=== PATIENT | female | born 1945 | race Caucasian/White ===

== ENCOUNTER 2016-09-17 00:52 | Inpatient (IN) | payer MEDICARE, BC ==
[~2016-09-17] VITALS: Ht 165.1 cm; Wt 68.5 kg
--- NOTE | 2016-09-17 00:55 | NUR ---
to bed 3 bib paramedics c/o abdominal burning with n/v x1 since yesterday morning. pt aaox4 no acute distress noted, resp even and unlabored. place pt on cardiac monitoring, continuous pox. er md at bedside to eval pt with orders received. will carry out orders.
[2016-09-17] MEDS ORDERED: IV SET PRIMARY 1 EA INFUS.SET MC ONE (01:10)
[2016-09-17] MEDS ORDERED: IV NS 0.9% 500 ML IV ONE (01:10)
[2016-09-17] MEDS ORDERED: MORPHINE SULFATE INJ 2 MG/ML DISP.SYRIN ONE ×2 (01:10→04:51)
[2016-09-17] MEDS ORDERED: ONDANSETRON HCL/PF 4 MG/2 ML VIAL ONE ×2 (01:10→04:52)
--- NOTE | 2016-09-17 01:10 | NUR ---
started sl 18g to R forearm, blood drawn and sent to lab.
[2016-09-17 01:15] LABS: APPEARANCE,URINE TURBID (CLEAR); BILIRUBIN,URINE NEGATIVE (NEGATIVE); BLOOD, URINE NEGATIVE Ery/uL (NEGATIVE); COLOR,URINE YELLOW (YELLOW); KETONES,URINE TRACE (NEGATIVE); LEUKOCYTE ESTERASE ,URINE NEGATIVE (NEGATIVE); NITRITE, URINE NEGATIVE (NEGATIVE); PROTEIN,URINE TRACE mg/dl (NEGATIVE); UGLUCOSE NEGATIVE (NEGATIVE); UROBILINOGEN,URINE 0.2 EU/dL (0.2)
--- NOTE | 2016-09-17 01:21 | NUR ---
pt medicated by rn per er md order.
--- NOTE | 2016-09-17 01:22 | NUR ---
pt family member at bedside.
[2016-09-17 01:25] LABS: BASOPHILS % (AUTO) 0.2 % (0.0-2.0); EOSINOPHILS # (AUTO) 0.1 /CMM (0.0-0.7); EOSINOPHILS % (AUTO) 0.7 % (0.0-6.0); HEMATOCRIT 46 % (33-45); HEMOGLOBIN 15.6 g/dL (11.5-14.8); LYMPHOCYTES # (AUTO) 1.2 /CMM (0.8-4.8); LYMPHOCYTES % (AUTO) 8.4 % (20.0-44.0); MEAN CORPUSCULAR HEMOGLOBIN 28 PG (26.0-33.0); MEAN CORPUSCULAR HGB CONC 34 g/dl (31.0-36.0); MEAN CORPUSCULAR VOLUME 84 fL (82-100); MONOCYTES # (AUTO) 0.6 /CMM (0.1-1.30); MONOCYTES % (AUTO) 4.2 % (2.0-12.0); NEUTROPHILS # (AUTO) 12.1 /CMM (1.8-8.9); NEUTROPHILS % (AUTO) 86.5 % (43.0-81.0); PLATELET COUNT (AUTO) 225 /CMM (150-450); RDW COEFFICIENT OF VARIATION 15.4 (11.5-15.0); RED BLOOD CELL COUNT(AUTO) 5.51 MIL/uL (4.0-5.2); WHITE BLOOD COUNT (AUTO) 13.9 K/uL (4.3-11.0)
[2016-09-17] MEDS ORDERED: ONDANSETRON HCL/PF 4 MG/2 ML VIAL IVP ONE (01:30)
[2016-09-17] MEDS ORDERED: MORPHINE SULFATE INJ 2 MG/ML DISP.SYRIN IV ONE (01:30)
[2016-09-17] MEDS ORDERED: IV NS 0.9% 500 ML BAG IV ONE (01:30)
[2016-09-17 01:37] LABS: CALCIUM, SERUM 9.6 mg/dL (8.5-10.1); CARBON DIOXIDE 34 mmol/L (21-32); CHLORIDE 103 mmol/L (98-107); CREATININE 0.7 mg/dL (0.6-1.3); GLUCOSE 155 mg/dL (74-106); SODIUM SERUM 146 mmol/L (136-145); UREA NITROGEN, BLOOD 21 mg/dL (7-18)
[2016-09-17 01:39] LABS: BACTERIA,URINE None seen /HPF (None Seen); SQUAMOUS EPITHELIAL CELL,UR Rare /HPF (None Seen); URINE AMORPHOUS URATE Many /HPF (None Seen); WBC,URINE 0-2 /HPF (0-3)
[2016-09-17 01:40] LABS: INR 1.06 (0.87-1.13); PROTHROMBIN TIME 11.4 SECS (9.5-12.7)
[2016-09-17 01:42] LABS: ALANINE AMINOTRANSFERASE 26 U/L (12-78); ALBUMIN 3.8 g/dL (3.4-5.0); ALKALINE PHOSPHATASE 53 U/L (46-116); ASPARTATE AMINOTRANSFERASE 16 U/L (15-37); BILIRUBIN,DIRECT 0.1 mg/dL (0.0-0.2); BILIRUBIN,TOTAL 0.7 mg/dL (0.2-1.0); LIPASE 77 U/L (73-393); TOTAL PROTEIN, SERUM 7.3 g/dL (6.4-8.2)
[2016-09-17 01:44] LABS: TROPONIN I < 0.017 ng/mL (0.00-0.056)
--- NOTE | 2016-09-17 03:03 | NUR ---
report called to M/S TOM lopez. pending hospital admission.
[2016-09-17] MEDS ORDERED: Z GUARD REMEDY 2 OZ OINT TP PRN (04:00)
[2016-09-17] MEDS ORDERED: MORPHINE SULFATE INJ 2 MG/ML DISP.SYRIN IV PRN (04:00)
[2016-09-17] MEDS ORDERED: ONDANSETRON HCL/PF 4 MG/2 ML VIAL IVP PRN (04:00)
[2016-09-17 04:15] VITALS: BP 153/72
[2016-09-17] MEDS ORDERED: PROP80TA4 PO (04:48)
[2016-09-17] MEDS ORDERED: LEVO25TA7 PO (04:48)
[2016-09-17] MEDS ORDERED: BACL10TA PO (04:48)
[2016-09-17] MEDS ORDERED: CYCL30DR EACHEYE (04:48)
[2016-09-17] MEDS ORDERED: LIFI1DRO OP (04:48)
[2016-09-17] MEDS ORDERED: ROSU10TA PO (04:48)
[2016-09-17] MEDS ORDERED: METF500T4 PO (04:48)
[2016-09-17] MEDS ORDERED: ZONI25CA3 PO (04:48)
[2016-09-17] MEDS ORDERED: DABI150C PO (04:48)
[2016-09-17] MEDS ORDERED: GABA600T2 PO (04:48)
[2016-09-17] MEDS ORDERED: SITA100T PO (04:48)
[2016-09-17] MEDS ORDERED: DULO60CA45 PO (04:48)
[2016-09-17] MEDS ORDERED: MELO-264 PO (04:48)
[2016-09-17] MEDS ORDERED: MONT10TA22 PO (04:48)
[2016-09-17] MEDS ORDERED: PANT40TA2 PO (04:48)
--- NOTE | 2016-09-17 06:30 | NUR ---
MS RN NOTES AWAKE & RESPONSIVE. NOT IN ANY DISTRESS. NO SOB NOTED. DENIES ANY PAIN OR DISCOMFORT AT THIS TIME. WITH IV-HL PATENT & INTACT. MONITORED ACCORDINGLY. CALL LIGHT WITHIN REACH. BED IN LOWEST POSITION. SR UP X 2 FOR SAFETY. WILL ENDORSE TO NEXT SHIFT.
--- NOTE | 2016-09-17 07:52 | NUR ---
RN OPENING NOTES RECEIVED PATIENT IN BED, ASLEEP, HOB, NO SOB OR DISTRESS NOTED. A/O X 4, VERBALLY RESPONSIVE AND ABLE TO MAKE NEEDS KNOWN. IV INTACT AND PATENT. KEPT PATIENT CLEAN AND COMFORTABLE IN BED, CALL LIGHT WITHIN PATIENT REACH. WILL CONTINUE TO MONITOR ACCORDINGLY.
[2016-09-17 08:00] VITALS: BP 168/84
[2016-09-17] MEDS ORDERED: IV NS 0.9% 1,000 ML BAG IV PRN (10:00)
--- NOTE | 2016-09-17 11:10 | NUR ---
RN NOTES NG TUBE INDIAN 16 WAS PLACED, PATIENT TOLERATED WELL. CHEST X RAY STAT FOR PLACEMENT WAS ORDERED.
--- NOTE | 2016-09-17 11:25 | NUR ---
RN NOTES NG TUBE SUCTIONED 650ML OF COFFEE GROUND SECRETIONS.
[2016-09-17] MEDS ORDERED: IV SET PRIMARY PUMP SET 1 EA INFUS.SET MC ONE (12:19)
[2016-09-17] MEDS: POTASSIUM CL. PREMIX PERIPHER. 50 ML IV SCH ×6 (12:25→22:57)
[2016-09-17] MEDS: IV NS 0.9% 1,000 ML IV PRN (12:25)
[2016-09-17] MEDS ORDERED: SECONDARY IV SET 1 EA INFUS.SET MC ONE (13:06)
[2016-09-17] MEDS: CEFTRIAXONE 1 G in IV D5W 50 ML IV SCH (13:10)
[2016-09-17] MEDS: METRONIDAZOLE 500MG/ NS 100ML 500 MG in PREMIX 1 EA IV SCH ×2 (14:05→21:25)
[2016-09-17 16:00] VITALS: BP 172/90
--- NOTE | 2016-09-17 17:20 | NUR ---
RN NOTES I PAGED DR. TRUJILLO CLARIFYING ABOUT PATIENT'S ACCU CHECKS AND HE ORDERED ACCU CHECKS EVERY 6 HOURS WITHOUT SLIDING SCALE BECAUSE PATIENT IS NPO.
--- NOTE | 2016-09-17 18:20 | NUR ---
RN NOTES ALL NEEDS PROVIDED, ATTENDED, AND ANTICIPATED. KEPT PATIENT CLEAN AND COMFORTABLE IN BED, CALL LIGHT WITHIN PATIENT REACH. WILL CONTINUE TO MONITOR ACCORDINGLY. ENDORSED TO NEXT SHIFT RN TO CONTINUE CARE.
[2016-09-17] MEDS ORDERED: CLONIDINE HCL 0.2MG/24H PTWK 1 EA PATCH TD SCH (18:30)
--- NOTE | 2016-09-17 19:40 | NUR ---
MS RN NOTE: PATIENT RESTING IN BED, NO ACUTE DISTRESS NOTED. BREATHING EVEN AND UNLABORED, NO SOB NOTED. IV TO RFA IN PLACE. NG TUBE IN PLACE WITH SUCTION, HOB ELEVATED. BED LOCKED AND IN LOWEST POSITION, CALL LIGHT IN REACH. WILL CONTINUE TO MONITOR. Addendum: 09/18/16 at 0355 by FRANCOIS SAHA RN NG TUBE WITH ALREADY 1100 ML OF COFFEE GROUND DRAINAGE.
[2016-09-17 20:00] VITALS: BP 164/77
[2016-09-17] MEDS: BLOOD SUGAR DIAGNOSTIC 1 EACH STRIP IN SCH (23:07)
--- NOTE | 2016-09-17 23:15 | NUR ---
MS RN NOTE: PATIENT BLOOD SUGAR LEVEL 140 MG/DL, NO SLIDING SCALE ORDERED PER MD. PATIENT NPO, DENIES S/S OF HYPER/HYPOGLYCEMIA AT THIS TIME. WILL CONTINUE TO MONITOR.
[2016-09-18] MEDS: METRONIDAZOLE 500MG/ NS 100ML 500 MG in PREMIX 1 EA IV SCH ×3 (05:27→21:24)
[2016-09-18] MEDS: IV NS 0.9% 1,000 ML IV PRN (05:28)
[2016-09-18] MEDS: BLOOD SUGAR DIAGNOSTIC 1 EACH STRIP IN SCH ×3 (05:28→17:11)
--- NOTE | 2016-09-18 06:05 | NUR ---
MS RN NOTE: PATIENT RESTING IN BED, NO ACUTE DISTRESS NOTED. BREATHING EVEN AND UNLABORED, NO SOB NOTED. IV TO RFA IN PLACE, INFUSING NS AT 100ML/HR. NG TUBE IN PLACE WITH SUCTION WITH COFFEE GROUND DRAINAGE, HOB ELEVATED. BED LOCKED AND IN LOWEST POSITION, CALL LIGHT IN REACH. WILL ENDORSE TO DAY NURSE TO CONTINUE WITH PLAN OF CARE.
[2016-09-18 06:34] LABS: BASOPHILS % (AUTO) 0.3 % (0.0-2.0); EOSINOPHILS # (AUTO) 0.1 /CMM (0.0-0.7); EOSINOPHILS % (AUTO) 1.4 % (0.0-6.0); HEMATOCRIT 41 % (33-45); HEMOGLOBIN 13.7 g/dL (11.5-14.8); LYMPHOCYTES # (AUTO) 0.8 /CMM (0.8-4.8); LYMPHOCYTES % (AUTO) 8.5 % (20.0-44.0); MEAN CORPUSCULAR HEMOGLOBIN 28 PG (26.0-33.0); MEAN CORPUSCULAR HGB CONC 34 g/dl (31.0-36.0); MEAN CORPUSCULAR VOLUME 84 fL (82-100); MONOCYTES # (AUTO) 0.9 /CMM (0.1-1.30); MONOCYTES % (AUTO) 9.5 % (2.0-12.0); NEUTROPHILS # (AUTO) 7.5 /CMM (1.8-8.9); NEUTROPHILS % (AUTO) 80.3 % (43.0-81.0); PLATELET COUNT (AUTO) 195 /CMM (150-450); RDW COEFFICIENT OF VARIATION 15.6 (11.5-15.0); RED BLOOD CELL COUNT(AUTO) 4.87 MIL/uL (4.0-5.2); WHITE BLOOD COUNT (AUTO) 9.3 K/uL (4.3-11.0)
[2016-09-18 06:54] LABS: CALCIUM, SERUM 8.5 mg/dL (8.5-10.1); CREATININE 0.6 mg/dL (0.6-1.3); MAGNESIUM 2.1 mg/dL (1.8-2.4); PHOSPHORUS 3.9 mg/dL (2.5-4.9); POTASSIUM 3.4 mmol/L (3.5-5.1)
--- NOTE | 2016-09-18 07:24 | NUR ---
RN OPENING NOTES RECEIVED PATIENT IN BED, AWAKE, HOB, NO SOB OR DISTRESS NOTED. A/O X 3-4, VERBALLY RESPONSIVE AND ABLE TO MAKE NEEDS KNOWN. PATIENT ON O2 2 LPM VIA NC AND TOLERATED WELL. IV INTACT AND PATENT. KEPT PATIENT CLEAN AND COMFORTABLE IN BED, CALL LIGHT WITHIN PATIENT REACH. WILL CONTINUE TO MONITOR ACCORDINGLY.
[2016-09-18 08:00] VITALS: BP 132/69
[2016-09-18] MEDS: POTASSIUM CL. PREMIX PERIPHER. 50 ML IV SCH ×4 (09:45→16:44)
[2016-09-18] MEDS ORDERED: IV 1/2NS 1000 ML 1,000 ML IV SCH (10:30)
[2016-09-18] MEDS ORDERED: DIATR MEGLU/DIATRIZOATE SODIUM 120 ML BOTTLE (GASTROGRAPHIN) ONE (10:38)
--- NOTE | 2016-09-18 10:50 | NUR ---
RN NOTES PATIENT WENT TO RADIOLOGY FOR THE SMALL BOWEL FOLLOW THROUGH PROCEDURE.
--- NOTE | 2016-09-18 10:54 | NUR ---
RN NOTES PATIENT GAVE MA A COPY OF HER ADVANCE DIRECTIVES, PATIENT WANTS TO BE DNR. DR. TRUJILLO IS AWARE AND CODE STATUS UPDATED.
--- NOTE | 2016-09-18 12:45 | NUR ---
RN NOTES PATIENT CAME BACK FROM PROCEDURE IN STABLE CONDITION WITH NO SIGNS OF DISTRESS. PATIENT DENIES PAIN AT THIS MOMENT.
[2016-09-18] MEDS: CEFTRIAXONE 1 G in IV D5W 50 ML IV SCH (12:50)
[2016-09-18] MEDS: IV 1/2NS 1000 ML 1,000 ML IV PRN (13:38)
[2016-09-18 16:00] VITALS: BP 152/83
--- NOTE | 2016-09-18 18:15 | NUR ---
RN CLOSING NOTES ALL NEEDS PROVIDED, ATTENDED, AND ANTICIPATED. KEPT PATIENT CLEAN AND COMFORTABLE IN BED. CALL LIGHT WITHIN PATIENT REACH. WILL CONTINUE TO MONITOR ACCORDINGLY. ENDORSED TO NEXT SHIFT RN TO CONTINUE CARE.
--- NOTE | 2016-09-18 18:42 | NUR ---
RN NOTES PATIENT HAD A LOOSE, DARK BROWN MOVEMENT
[2016-09-18 20:00] VITALS: BP 176/71
[2016-09-19] MEDS: BLOOD SUGAR DIAGNOSTIC 1 EACH STRIP IN SCH ×3 (00:06→11:33)
[2016-09-19] MEDS: IV 1/2NS 1000 ML 1,000 ML IV PRN (04:49)
[2016-09-19] MEDS: METRONIDAZOLE 500MG/ NS 100ML 500 MG in PREMIX 1 EA IV SCH ×2 (04:50→13:00)
[2016-09-19 06:45] LABS: CALCIUM, SERUM 8.1 mg/dL (8.5-10.1); CREATININE 0.5 mg/dL (0.6-1.3); MAGNESIUM 2.1 mg/dL (1.8-2.4); POTASSIUM 3.5 mmol/L (3.5-5.1)
--- NOTE | 2016-09-19 07:27 | NUR ---
MS RN OPENING RECEIVED PATIENT A/OX4 DENIES SOB, DIFFICULTY BREATHING OR PAIN. PATIENT STATES NO NEEDS AT THIS TIME AND ALL NEEDS IN REACH. PATIENT UPDATED ON CARE PLAN AND AWARE CLEAR LIQUIDS FOR BREAKFAST. WILL NOTIFY MD OF MED RECON SINCE PATIENT IS NOT NPO AT THIS TIME. WILL ROUND Q2H OR LESS PER NEEDS.
--- NOTE | 2016-09-19 07:45 | NUR ---
MS RN NOTES PATIENT STATES SHE IS HAVING DIARRHEA THAT STARTED AFTER THE SBFT. ADIVSED THIS IS TYPICAL FROM THE PROCEDURE. PATIENT AMBULATORY TO RESTROOM
[2016-09-19 08:00] VITALS: BP 152/71
--- NOTE | 2016-09-19 09:43 | NUR ---
MS RN NOTES PER DR TRUJILLO START PATIENT ON SOFT DIET FOR LUNCH AND IF TOLERATES OK TO DC PATIENT
--- NOTE | 2016-09-19 09:50 | NUR ---
MS RN NOTES FAXED MED RECON TO PHARMACY PER MD TRUJILLO
--- NOTE | 2016-09-19 09:54 | NUR ---
MS RN NOTES PER DR CASSANDRA SOTELO TO CONTINUE ALL HOME MEDICATIONS AND RESUME BEFORE PATIENT DCD
--- NOTE | 2016-09-19 10:09 | NUR ---
MS RN NOTES PER DR CASSANDRA GUERIN IVF
[2016-09-19] MEDS ORDERED: LEVOTHYROXINE SODIUM 75 MCG TABLET PO SCH (11:12)
[2016-09-19] MEDS ORDERED: MONTELUKAST SODIUM (10MG) 10 MG TABLET PO SCH (11:12)
[2016-09-19] MEDS ORDERED: PANTOPRAZOLE 40 MG TABLET.DR PO SCH (11:13)
[2016-09-19] MEDS ORDERED: MELOXICAM 7.5 MG TABLET PO SCH (11:14)
[2016-09-19] MEDS ORDERED: GABAPENTIN 300 MG CAPSULE PO SCH (11:14)
[2016-09-19] MEDS ORDERED: METFORMIN 500 MG TABLET PO SCH (11:16)
[2016-09-19] MEDS ORDERED: LINAGLIPTIN 5 MG TABLET PO SCH (11:16)
[2016-09-19] MEDS ORDERED: DULOXETINE HCL 30 MG CAPSULE.DR PO SCH (11:17)
[2016-09-19] MEDS ORDERED: PROPRANOLOL HCL 40 MG TABLET PO SCH (11:18)
[2016-09-19] MEDS ORDERED: DABIGATRAN ETEXILATE MESYLATE 150 MG CAPSULE PO SCH (11:19)
[2016-09-19] MEDS ORDERED: BACLOFEN (10 MG) 10 MG TABLET PO PRN (11:30)
--- NOTE | 2016-09-19 11:30 | NUR ---
MS RN NOTES MEDICATION PYXIS IS STILL DOWN. UNABLE TO GIVE PATIENT MEDICATIONS UNTIL UP AGAIN.
[2016-09-19] MEDS: CEFTRIAXONE 1 G in IV D5W 50 ML IV SCH (11:33)
[2016-09-19] MEDS ORDERED: ZONISAMIDE 100 MG CAPSULE PO SCH (13:00)
--- NOTE | 2016-09-19 13:31 | NUR ---
MS RN NOTES PATIENT STATING SHE WILL TAKE ALL OF HER MEDICATIONS WHEN SHE GETS HOME. ALL HOME MEDICATIONS BROUGHT UP FROM PHARMACY AND ACCOUNTED FOR. ALL BELONGINGS BROUGHT FROM [facility]E AND PATIENT SORTING THROUGH TO MAKE SURE ALL ACCOUNTED FOR.
--- NOTE | 2016-09-19 13:52 | NUR ---
MS SANTOS NOTES PER DR BENJI HOLLINGSWORTH DO NOT GIVE PLATELET TRANSFUSION Addendum: 09/19/16 at 1353 by GUSTAVO CUELLAR RN DISREGARD. INCORRECT PATIENT.
--- NOTE | 2016-09-19 14:26 | NUR ---
MS AUTOMATION AND CONTROLS SUPERVISOR PATIENT TOLERATED DIET WELL NO COMPLICATIONS. IV REMOVED PRESSURE AND DRESSING APPLIED NO BLEEDING. BELONGINGS AND MEDICATIONS BROUGHT TO PATIENT AND ALL ACCOUNTED FOR. PATIENT EDUCATED ON DC MATERIAL AND STATED UNDERSTANDING. ALL QUESTIONS ANSWERED. RX CALLED INTO PATIENT PREFERRED PHARMACY. PATIENT ASSISTED TO WHEELCHAIR BY VIOLETA DIAZ AND TAKEN TO PRIVATE VEHICLE WHERE ROME FRIEND IS TAKING PATIENT HOME. NO COMPLICATIONS NOTED AND PATIENT LEFT IN STABLE CONDITION
[2016-09-19] MEDS ORDERED: Medication Not On Formulary EA (Cyclosporine (Restasis) 1 DROP) EACHEYE SCH (17:00)
[2016-09-20] MEDS ORDERED: Medication Not On Formulary EA (Rosuvastatin Calcium (Crestor) 10 MG) PO SCH (09:00)
== END 2016-09-19 14:26 | disposition home or self-care (01) | DRG 389 ==
LOC: ER 00:54 → MEDSG2 03:21
PROVIDERS: ADMIT Family Medicine; ATTEND Family Medicine
DX: K56.60 Unspecified intestinal obstruction (principal); E87.0 Hyperosmolality and hypernatremia; D68.59 Other primary thrombophilia; I48.91 Unspecified atrial fibrillation; E87.6 Hypokalemia; I10 Essential (primary) hypertension; N28.89 Other specified disorders of kidney and ureter
CPT/HCPCS: 36415; 71010-TC; 74000-TC; 74250-TC; 80048-TC; 80061-TC; 80076-TC; 81000-TC; 82962-TC; 83690-TC; 83735-TC; 84100-TC; 84484-TC; 85025-TC; 85730-TC; 87081-TC; A4216; A4606; J0696; J2270; J2405; J3480; J3490; J7030; J7040; J7060; Q9963; Z7610

== ENCOUNTER 2018-08-12 16:30 | Inpatient (IN) | payer MEDICARE, BC ==
[~2018-08-12] VITALS: Ht 165.1 cm; Wt 74.9 kg
[~2018-08-12 16:30] MED LIST: BACL10TA PO; CYCL30DR EACHEYE; DABI150C PO; DULO60CA45 PO; GABA600T12 PO; LEVO25TA7 PO; LIFI1DRO OP; MELO-107 PO; METF-440 PO; MONT10TA22 PO; PANT40TA2 PO; PROP80TA4 PO; ROSU10TA2 PO; SITA100T PO; ZONI25CA3 PO
--- NOTE | 2018-08-12 16:38 | NUR ---
BIB [facility] 89 FROM HOME,C/O FEELING SICK/WEAK ALSO C/O CHEST PRESSURE. HAS HAD SX FOR ALMOST 2 WEEKS, AND GETTING WORSE. PT IS AOX4 AND AMBULATORY. SATTING AT 88% SO PLACED ON 2L O2 VIA NC. NO ACUTE DISTRESS NOTED. MADE COMFORTABLE, HOOKED TO MONITOR, AND READY FOR EVAL.
[2018-08-12 16:53] LABS: BASOPHILS % (AUTO) 0.4 % (0.0-2.0); EOSINOPHILS % (AUTO) 0.9 % (0.0-6.0); HEMATOCRIT 38 % (33-45); HEMOGLOBIN 12.6 g/dL (11.5-14.8); LYMPHOCYTES # (AUTO) 1.2 /CMM (0.8-4.8); LYMPHOCYTES % (AUTO) 10.9 % (20.0-44.0); MEAN CORPUSCULAR HGB CONC 34 g/dl (31.0-36.0); MEAN CORPUSCULAR VOLUME 87 fL (82-100); MONOCYTES # (AUTO) 1.3 /CMM (0.1-1.30); MONOCYTES % (AUTO) 11.9 % (2.0-12.0); NEUTROPHILS # (AUTO) 8.6 /CMM (1.8-8.9); NEUTROPHILS % (AUTO) 75.9 % (43.0-81.0); PLATELET COUNT (AUTO) 177 /CMM (150-450); RED BLOOD CELL COUNT(AUTO) 4.32 MIL/uL (4.0-5.2); WHITE BLOOD COUNT (AUTO) 11.3 K/uL (4.3-11.0)
[2018-08-12 17:05] LABS: CALCIUM, SERUM 8.6 mg/dL (8.5-10.1); CARBON DIOXIDE 33 mmol/L (21-32); CHLORIDE 103 mmol/L (98-107); CREATININE 0.6 mg/dL (0.6-1.3); GLUCOSE 95 mg/dL (74-106); POTASSIUM 3.3 mmol/L (3.5-5.1); SODIUM SERUM 141 mmol/L (136-145); UREA NITROGEN, BLOOD 16 mg/dL (7-18)
--- NOTE | 2018-08-12 17:05 | NUR ---
ASSISTED PT TO RESTROOM
[2018-08-12 17:17] LABS: ALANINE AMINOTRANSFERASE 23 U/L (12-78); ALBUMIN 3.1 g/dL (3.4-5.0); ALKALINE PHOSPHATASE 51 U/L (46-116); ASPARTATE AMINOTRANSFERASE 13 U/L (15-37); B-TYPE NATRIURETIC PEPTIDE 3088 PG/ML (0-125); BILIRUBIN,DIRECT 0.1 mg/dL (0.0-0.2); BILIRUBIN,TOTAL 0.9 mg/dL (0.2-1.0); TOTAL PROTEIN, SERUM 6.6 g/dL (6.4-8.2)
--- NOTE | 2018-08-12 17:17 | NUR ---
SPOKE WITH SISTER, ARCENIO CASTANEDA [phone]. LIVES IN [place]
[2018-08-12] MEDS ORDERED: MELO-107 PO (17:29)
[2018-08-12] MEDS ORDERED: PROP40TA7 PO (17:29)
[2018-08-12] MEDS ORDERED: ZONI25CA3 PO (17:29)
[2018-08-12] MEDS ORDERED: METF-440 PO (17:29)
[2018-08-12] MEDS ORDERED: CYCL30DR OP (17:29)
[2018-08-12] MEDS ORDERED: LOSA50TA39 PO (17:29)
[2018-08-12] MEDS ORDERED: LIFI1DRO OP (17:29)
[2018-08-12] MEDS ORDERED: KETO5DRO83 OP (17:29)
[2018-08-12] MEDS ORDERED: MONT10TA22 PO (17:29)
[2018-08-12] MEDS ORDERED: LEVO175T7 PO (17:29)
[2018-08-12] MEDS ORDERED: PANT40TA4 PO ×2 (17:29→17:33)
[2018-08-12] MEDS ORDERED: BACL10TA PO (17:29)
[2018-08-12] MEDS ORDERED: DULO60CA45 PO (17:29)
[2018-08-12] MEDS ORDERED: ATOR20TA PO (17:29)
[2018-08-12] MEDS ORDERED: SITA50TA PO (17:29)
[2018-08-12] MEDS ORDERED: ASPI-605 PO (17:29)
[2018-08-12] MEDS ORDERED: MAGN64TA7 GT (17:33)
--- NOTE | 2018-08-12 17:44 | NUR ---
325-2 TELE AGNIESZKA JAY DNP
--- NOTE | 2018-08-12 18:23 | NUR ---
REPORT GIVEN TO TOM ARAIZA FOR 325-2 TELE
[2018-08-12] MEDS ORDERED: DEXTROSE 50%-WATER 50 ML DISP.SYRIN IV PRN (18:30)
[2018-08-12] MEDS ORDERED: ACETAMINOPHEN 325 MG TABLET PO PRN (18:30)
[2018-08-12] MEDS ORDERED: Z GUARD REMEDY 2 OZ OINT TP PRN (18:30)
[2018-08-12] MEDS ORDERED: INSULIN REGULAR, HUMAN 100 UNIT/ML 3 ML VIAL SQ PRN (18:30)
[2018-08-12] MEDS ORDERED: HYDROCODONE/APAP 5/325MG 1 EACH TABLET PO PRN (18:30)
[2018-08-12] MEDS ORDERED: ONDANSETRON HCL/PF 4 MG/2 ML VIAL IVP PRN (18:30)
--- NOTE | 2018-08-12 18:47 | NUR ---
Patient is resting comfortably in bed with eyes closed. Easily aroused. VSS
--- NOTE | 2018-08-12 18:50 | NUR ---
[facility]
[2018-08-12] MEDS ORDERED: BUMETANIDE INJ 6 MG in IV NS 0.9% 36 ML IV ONE (19:00)
--- NOTE | 2018-08-12 19:00 | NUR ---
client account assistant opening notes Received PT from ER. PT is alert and oriented X4. No complaint of pain or any discomfort. Respiration is equal and unlabored. NO SOB. Patient gait is steady and able to walk to the bathroom with minimum assistance. IV sites is on right AC, intact, patent and flush without resistance. PT skin is intact
--- NOTE | 2018-08-12 19:00 | NUR ---
motor equipment captain notes continue Safety precautions is maintained. Bed at low position and call light is within reach. Will continue to monitor.
[2018-08-12 20:00] VITALS: BP 147/80
[2018-08-12] MEDS: BLOOD SUGAR DIAGNOSTIC 1 EACH STRIP IN SCH (21:11)
[2018-08-12] MEDS: GABAPENTIN 300 MG CAPSULE PO SCH (21:12)
[2018-08-12] MEDS: ATORVASTATIN 10 MG TABLET PO SCH (21:12)
[2018-08-12] MEDS: BACLOFEN (10 MG) 10 MG TABLET PO SCH (21:13)
[2018-08-12] MEDS: ENOXAPARIN SODIUM 40 MG/0.4 ML DISP.SYRIN SQ SCH (21:14)
[2018-08-12] MEDS ORDERED: BUMETANIDE INJ 0.25 MG/ML VIAL ONE (21:36)
[2018-08-13] VITALS: BP 146/82
--- NOTE | 2018-08-13 01:06 | NUR ---
red mud thickener operator notes PT is resting in bed comfortably with eyes closed. Will continue to monitor.
[2018-08-13 04:00] VITALS: BP 154/73
--- NOTE | 2018-08-13 05:49 | NUR ---
barrer and tacker notes The Pharmacy asked to see if the PT can bring her own home medications. Asked and informed PT about Home medications Restasis and Xiidra eye drops. PT states "I'm feeling better, I don't need it." PT verbalize understanding.
[2018-08-13] MEDS: BLOOD SUGAR DIAGNOSTIC 1 EACH STRIP IN SCH ×4 (06:00→21:45)
[2018-08-13 06:22] LABS: BASOPHILS # (AUTO) 0.1 /CMM (0.0-0.2); BASOPHILS % (AUTO) 0.7 % (0.0-2.0); EOSINOPHILS % (AUTO) 1.8 % (0.0-6.0); HEMATOCRIT 38 % (33-45); HEMOGLOBIN 12.8 g/dL (11.5-14.8); LYMPHOCYTES # (AUTO) 1.5 /CMM (0.8-4.8); LYMPHOCYTES % (AUTO) 16.4 % (20.0-44.0); MEAN CORPUSCULAR HGB CONC 34 g/dl (31.0-36.0); MEAN CORPUSCULAR VOLUME 86 fL (82-100); MONOCYTES # (AUTO) 1.1 /CMM (0.1-1.30); MONOCYTES % (AUTO) 11.9 % (2.0-12.0); NEUTROPHILS # (AUTO) 6.2 /CMM (1.8-8.9); NEUTROPHILS % (AUTO) 69.2 % (43.0-81.0); PLATELET COUNT (AUTO) 177 /CMM (150-450); RED BLOOD CELL COUNT(AUTO) 4.36 MIL/uL (4.0-5.2)
--- NOTE | 2018-08-13 06:28 | NUR ---
advanced practice nurse psychotherapist notes continue PT is on shelter monitor-Sinus arrythmia.
--- NOTE | 2018-08-13 06:28 | NUR ---
earth sciences professor closing notes PT is alert and oriented X4. PT is resting comfortably in bed with eyes closed. Arouse easily. NO SOB. No pain or any discomfort at this time. PT is on cardiac care nurse-Sinus Arrythmia. IV site is intact, patent and flush without resistance. Last blood glucose was 112. Routine Meds have been given and all needs met. Safety precautions is maintained. Bed at low position and call light is within reach. Will endorse to morning nurse.
[2018-08-13 06:34] LABS: ALANINE AMINOTRANSFERASE 23 U/L (12-78); ALKALINE PHOSPHATASE 48 U/L (46-116); ASPARTATE AMINOTRANSFERASE 14 U/L (15-37); BILIRUBIN,TOTAL 0.8 mg/dL (0.2-1.0); CALCIUM, SERUM 8.4 mg/dL (8.5-10.1); CARBON DIOXIDE 34 mmol/L (21-32); CHLORIDE 102 mmol/L (98-107); CREATININE 0.6 mg/dL (0.6-1.3); GLUCOSE 114 mg/dL (74-106); MAGNESIUM 1.8 mg/dL (1.8-2.4); PHOSPHORUS 3.5 mg/dL (2.5-4.9); SODIUM SERUM 145 mmol/L (136-145); UREA NITROGEN, BLOOD 14 mg/dL (7-18)
--- NOTE | 2018-08-13 07:10 | NUR ---
flooring professional notes Received critical lab from Lab, PT's potassium was 2,6. Informed the morning nurse already about PT's Potassium and home medications Restasis and Xiidra eye drops.
[2018-08-13 07:13] LABS: POTASSIUM 2.6 mmol/L (3.5-5.1)
[2018-08-13 08:00] VITALS: BP 155/80
--- NOTE | 2018-08-13 08:00 | NUR ---
RN NOTES RECEIVED PATIENT IN THE BED A/O X3/4. PATIENT ON TELE. TELE MONITOR ON SR-61. PATIENT STABLE, HAS NO ACUTE RESPIRATORY DISTRESS, V/S STABLE. PATIENT REFUSED PAIN, USING BEDSIDE COMMODE. IV ACCESS ON RIGHT AC AREA INTACT. GET ORDER FOR ABNORMAL LAB RESULT KCL 2.6 K-DURE [address] ROMERO. PATIENT STABLE ADMINISTERED SCHEDULED MEDICATION, V/S STABLE. PATIENT SHAKING PER GENETIC DISORDER. CALL LIGHT WITHIN TO REACH, SAFETY PRECAUTION MAINTAINED ALL THE TIME. PATIENT USING BEDSIDE COMMODE.
[2018-08-13] MEDS: PANTOPRAZOLE 40 MG TABLET.DR PO SCH ×2 (08:36→16:43)
[2018-08-13] MEDS: LEVOTHYROXINE SODIUM 175 MCG TABLET PO SCH (08:36)
[2018-08-13] MEDS: DULOXETINE HCL 20 MG CAPSULE.DR PO SCH (08:37)
[2018-08-13] MEDS: GABAPENTIN 300 MG CAPSULE PO SCH ×3 (08:37→21:45)
[2018-08-13] MEDS: PROPRANOLOL HCL 40 MG TABLET PO SCH ×2 (08:39→16:43)
[2018-08-13] MEDS: BACLOFEN (10 MG) 10 MG TABLET PO SCH ×3 (08:41→16:43)
[2018-08-13] MEDS: LINAGLIPTIN 5 MG TABLET PO SCH (08:41)
[2018-08-13] MEDS: MONTELUKAST SODIUM (10MG) 10 MG TABLET PO SCH (08:41)
[2018-08-13] MEDS: METFORMIN 500 MG TABLET PO SCH (08:47)
[2018-08-13] MEDS: KETOROLAC EYE 0.5% 3 ML BOTTLE EACHEYE SCH ×2 (08:47→16:43)
[2018-08-13] MEDS: ASPIRIN EC 81 MG TABLET.DR PO SCH (08:47)
[2018-08-13 08:50] LABS: CHOLESTEROL 131 mg/dL (<200); HDL CHOLESTEROL 41 mg/dL (40-60); LDL 75 mg/dL (0-99); TRIGLYCERIDES 99 mg/dL (30-150)
[2018-08-13] MEDS ORDERED: CYCLOSPORINE EACHEYE SCH (09:00)
[2018-08-13] MEDS ORDERED: LIFITEGRAST EYE EACHEYE SCH (09:00)
[2018-08-13] MEDS ORDERED: LOSARTAN POTASSIUM 50 MG TABLET PO SCH (09:00)
[2018-08-13] MEDS: POTASSIUM CHLORIDE 20 MEQ TAB.PRT.SR PO SCH ×5 (09:09→13:00)
[2018-08-13 09:14] VITALS: BP 142/71
[2018-08-13] MEDS: VALSARTAN 80 MG TABLET PO SCH (09:14)
--- NOTE | 2018-08-13 11:00 | NUR ---
RN NOTES PATIENT GETTING ECHO US AT THIS TIME, STABLE. CONTINUED MONITORING. PER COLLEGE ADMINISTRATOR D/C TELE TO MED/SURGE. CONTINUED MONITORING.
--- NOTE | 2018-08-13 12:00 | NUR ---
RN NOTES BS-104 MG/DL, NO COVERAGE GIVEN, V/S STABLE, PATIENT EATING LUNCH.
[2018-08-13 14:10] LABS: TOTAL PROTEIN, SERUM 6.8 g/dL (6.4-8.2)
[2018-08-13] MEDS ORDERED: POTASSIUM CHLORIDE 20 MEQ TAB.PRT.SR PO ONE (15:30)
[2018-08-13 16:00] VITALS: BP 140/72
--- NOTE | 2018-08-13 18:30 | NUR ---
RN NOTES PATIENT STABLE, V/S STABLE, BS-104 MG/DL, NO COVERAGE GIVEN, PATIENT MED COMPLIANT. COLLECTED UA CLEAN CATCH. FRIEND NEXT TO THE BED . CALL LIGHT WITHIN TO REACH. SAFETY PRECAUTION MAINTAINED ALL THE TIME. ENDORSED ONCOMING NURSE PLAN OF CARE.
--- NOTE | 2018-08-13 19:30 | NUR ---
RN OPEN NOTES RECEIVED PATIENT AWAKE IN BED WITH FAMILY AT BEDSIDE. A/OX4. NO SIGNS OF DISTRESS OR DISCOMFORT. BREATHING EVEN AND UNLABORED. ON 2LPM O2 VIA NC. IV ACCESS IN RAC, PATENT AND INTACT, NO SIGNS OF REDNESS OR INFILTRATION. BED IN LOW LOCKED POSITION WITH SIDE RAILS X2. CALL LIGHT LIGHT WITHIN REACH. WILL CONTINUE TO MONITOR.
[2018-08-13 20:00] VITALS: BP 142/75
[2018-08-13 20:17] LABS: CHLORIDE,URINE RANDOM 80 mmol/L (55-125); POTASSIUM RNDM,URINE 129 mmol/L (25-125); URINE SODIUM, RANDOM 30 mmol/l (40-220)
[2018-08-13 20:51] LABS: OSMOLALITY,URINE 640 mOS/kg (340-1090)
[2018-08-13] MEDS: ATORVASTATIN 10 MG TABLET PO SCH (21:45)
[2018-08-13] MEDS: ENOXAPARIN SODIUM 40 MG/0.4 ML DISP.SYRIN SQ SCH (21:46)
[2018-08-14 06:23] LABS: BASOPHILS # (AUTO) 0.1 /CMM (0.0-0.2); BASOPHILS % (AUTO) 0.7 % (0.0-2.0); EOSINOPHILS % (AUTO) 2.8 % (0.0-6.0); HEMATOCRIT 38 % (33-45); HEMOGLOBIN 12.9 g/dL (11.5-14.8); LYMPHOCYTES # (AUTO) 1.5 /CMM (0.8-4.8); LYMPHOCYTES % (AUTO) 17.8 % (20.0-44.0); MEAN CORPUSCULAR HGB CONC 34 g/dl (31.0-36.0); MEAN CORPUSCULAR VOLUME 87 fL (82-100); MONOCYTES # (AUTO) 0.9 /CMM (0.1-1.30); MONOCYTES % (AUTO) 11.2 % (2.0-12.0); NEUTROPHILS # (AUTO) 5.7 /CMM (1.8-8.9); NEUTROPHILS % (AUTO) 67.5 % (43.0-81.0); PLATELET COUNT (AUTO) 184 /CMM (150-450); RED BLOOD CELL COUNT(AUTO) 4.37 MIL/uL (4.0-5.2); WHITE BLOOD COUNT (AUTO) 8.4 K/uL (4.3-11.0)
[2018-08-14] MEDS: BLOOD SUGAR DIAGNOSTIC 1 EACH STRIP IN SCH ×2 (06:33→11:44)
[2018-08-14 06:39] LABS: ALANINE AMINOTRANSFERASE 20 U/L (12-78); ALBUMIN 2.8 g/dL (3.4-5.0); ALKALINE PHOSPHATASE 49 U/L (46-116); ASPARTATE AMINOTRANSFERASE 11 U/L (15-37); BILIRUBIN,TOTAL 0.7 mg/dL (0.2-1.0); CALCIUM, SERUM 8.6 mg/dL (8.5-10.1); CARBON DIOXIDE 35 mmol/L (21-32); CHLORIDE 104 mmol/L (98-107); CREATININE 0.7 mg/dL (0.6-1.3); GLUCOSE 103 mg/dL (74-106); MAGNESIUM 1.9 mg/dL (1.8-2.4); PHOSPHORUS 3.2 mg/dL (2.5-4.9); POTASSIUM 3.3 mmol/L (3.5-5.1); SODIUM SERUM 144 mmol/L (136-145); TOTAL PROTEIN, SERUM 6.4 g/dL (6.4-8.2); UREA NITROGEN, BLOOD 22 mg/dL (7-18)
[2018-08-14 06:42] LABS: THYROID STIMULATING HORMONE 3.329 uIU/mL (0.358-3.74)
--- NOTE | 2018-08-14 07:27 | NUR ---
RN CLOSING NOTES PATIENT AWAKE IN BED. A/OX4. NO SIGNS OF DISTRESS OR DISCOMFORT. BREATHING EVEN AND UNLABORED. ON 2LPM O2 VIA NC. IV ACCESS IN RAC, PATENT AND INTACT, NO SIGNS OF REDNESS OR INFILTRATION. ALL NEEDS MET. NO SIGNIFICANT CHANGES THROUGH THE NIGHT. BED IN LOW LOCKED POSITION WITH SIDE RAILS X2. CALL LIGHT LIGHT WITHIN REACH. ENDORSED TO AM SHIFT FOR MILAN.
[2018-08-14 08:00] VITALS: BP 165/84
--- NOTE | 2018-08-14 08:00 | NUR ---
MS RN NOTES PATIENT NOTED IN BED RESTING NO SOB OR ACUTE DISTRESS NOTED. PATIENT ALERT, ORIENTED X3. BED IN LOW LOCKED POSITION. CALL LIGHT WITHIN REACH. PERIPHERAL IV INTACT PATENT. WILL CONTINUE TO MONITOR.
[2018-08-14] MEDS: METFORMIN 500 MG TABLET PO SCH (08:22)
[2018-08-14] MEDS: PROPRANOLOL HCL 40 MG TABLET PO SCH (08:23)
[2018-08-14] MEDS: VALSARTAN 80 MG TABLET PO SCH (08:23)
[2018-08-14] MEDS: MONTELUKAST SODIUM (10MG) 10 MG TABLET PO SCH (08:23)
[2018-08-14] MEDS: PANTOPRAZOLE 40 MG TABLET.DR PO SCH (08:24)
[2018-08-14] MEDS: ASPIRIN EC 81 MG TABLET.DR PO SCH (08:24)
[2018-08-14] MEDS: LINAGLIPTIN 5 MG TABLET PO SCH (08:24)
[2018-08-14] MEDS: BACLOFEN (10 MG) 10 MG TABLET PO SCH ×2 (08:24→12:21)
[2018-08-14] MEDS: DULOXETINE HCL 20 MG CAPSULE.DR PO SCH (08:24)
[2018-08-14] MEDS: GABAPENTIN 300 MG CAPSULE PO SCH ×2 (08:24→15:04)
[2018-08-14] MEDS: LEVOTHYROXINE SODIUM 175 MCG TABLET PO SCH (08:28)
[2018-08-14] MEDS: KETOROLAC EYE 0.5% 3 ML BOTTLE EACHEYE SCH (08:29)
[2018-08-14] MEDS ORDERED: POTASSIUM CHLORIDE 20 MEQ TAB.PRT.SR PO SCH (10:00)
[2018-08-14 15:14] VITALS: BP 141/73
[2018-08-14 15:18] VITALS: BP 141/73
--- NOTE | 2018-08-14 16:40 | NUR ---
MS RN NOTES PATIENT ALERT, ORIENTED X3. DISCHARGE TEACHING PROVIDED VERBALIZED UNDERSTANDING. DISCHARGE PROTOCOL FOLLOWED. PERIPHERAL IV REMOVED WITH MINIMAL BLEEDING NOTED. ID BAND REMOVED. ALL BELONGINGS ACCOUNTED FOR, BELONGING LIST SIGNED. PATIENT REQUESTED TO FAX MEDICAL RECORDS TO HER BEHAVIORAL HEALTH WORKER AND PCP RECORDS FAXED PER PATIENTS REQUEST. MD AWARE OF ALL ABNORMAL TESTS/LABS. PATIENT ESCORTED TO CAR WITH WHEELCHAIR.
== END 2018-08-14 16:44 | disposition home or self-care (01) | DRG 291 ==
LOC: ER 16:31 → TELE 18:03 → MED 08-13 09:31
PROVIDERS: ADMIT Nurse Practitioner Acute Care; ATTEND Nurse Practitioner Acute Care
DX: I11.0 Hypertensive heart disease with heart failure (principal); I50.31 Acute diastolic (congestive) heart failure; D68.59 Other primary thrombophilia; C50.919 Malignant neoplasm of unspecified site of unspecified female breast; G25.2 Other specified forms of tremor; I48.91 Unspecified atrial fibrillation; E87.6 Hypokalemia; I25.10 Atherosclerotic heart disease of native coronary artery without angina pectoris; F32.9 Major depressive disorder, single episode, unspecified; F41.9 Anxiety disorder, unspecified; E89.0 Postprocedural hypothyroidism; J44.9 Chronic obstructive pulmonary disease, unspecified; E11.29 Type 2 diabetes mellitus with other diabetic kidney complication; N25.89 Other disorders resulting from impaired renal tubular function; Z85.850 Personal history of malignant neoplasm of thyroid
CPT/HCPCS: 36415; 71045-TC; 80048-TC; 80053-TC; 80061-TC; 80076-TC; 82436-TC; 82533; 82962-TC; 83735-TC; 83880; 83935-TC; 84100-TC; 84133-TC; 84244; 84300-TC; 84439-TC; 84443-TC; 84484-TC; 85025-TC; 87040-TC; 87081-TC; 87400; 93307-TC; A4216; G0378; J1650; J1815; J3490; J7050